=== PATIENT | female | born 1965 | race Caucasian/White ===

== ENCOUNTER 2017-08-14 15:08 | Observation (INO) | payer MEDICAID ==
[~2017-08-14] VITALS: Ht 170.2 cm; Wt 58.9 kg
[~2017-08-14 15:08] MED LIST: AMLO10 PO; ASPI81 PO; BUPR1SUB6 SL; CLON-352 PO; ISOS60TA PO; KLON2TAB PO; LISI20 PO; LOSA100T PO; METO50TA PO; PLAV75TA29 PO; PRAV80TA PO; ROSU20 PO; SIMV40; TOPR50TA PO; TRAZ50TA78 PO; VALI5TAB OR
[2017-08-14 18:15] VITALS: BP 145/83; PULSE 74; RESP 16; TEMP 98.1; O2SAT 93
[2017-08-14] MEDS ORDERED: NALOXONE HCL 0.4 MG/ML AMP IV PUSH PRN (18:30)
[2017-08-14] MEDS ORDERED: TEMAZEPAM 15 MG CAP PO PRN (18:30)
[2017-08-14] MEDS ORDERED: LACTULOSE SYRUP 20 GM/30 ML CUP PO PRN (18:30)
[2017-08-14 20:00] VITALS: BP 114/66; PULSE 74; RESP 17; TEMP 99.1; O2SAT 98
[2017-08-14] MEDS ORDERED: POTASSIUM CHLORIDE 20 MEQ CONTROLLED RELEASE TAB PO ONE (20:45)
[2017-08-14] MEDS: MORPHINE SULFATE 4 MG/ML INJ IV PUSH PRN (21:52)
[2017-08-14] MEDS: SODIUM CHLORIDE 0.9% FLUSH 10 ML FLUSH IV FLUSH SCH (21:53)
[2017-08-14] MEDS: SODIUM CHLORIDE 0.9% FLUSH 10 ML FLUSH IV FLUSH PRN (23:10)
[2017-08-14] MEDS: ONDANSETRON HCL 4 MG/2 ML VIAL IVP PRN (23:10)
[2017-08-15] VITALS: BP 118/71; PULSE 77; RESP 18; TEMP 98.5; O2SAT 97
[2017-08-15] MEDS: SODIUM CHLORIDE 0.9% FLUSH 10 ML FLUSH IV FLUSH PRN (03:33)
[2017-08-15] MEDS: MORPHINE SULFATE 4 MG/ML INJ IV PUSH PRN ×3 (03:33→12:53)
[2017-08-15 08:00] VITALS: BP 151/93; PULSE 80; RESP 16; TEMP 99.3; O2SAT 92
[2017-08-15] MEDS: SODIUM CHLORIDE 0.9% FLUSH 10 ML FLUSH IV FLUSH SCH (08:00)
[2017-08-15 09:29] LABS: AUTOMATED NEUTROPHIL # 3.6 TH/MM3 (1.8-7.7); BASOPHIL % 0.4 % (0.0-2.0); EOSINOPHIL % 0.6 % (0.0-4.0); HEMATOCRIT 43.1 % (35.0-46.0); HEMO FLAGS DIFF FINAL; LYMPH % 20.5 % (9.0-44.0); MEAN CELL VOLUME 88.3 FL (80.0-100.0); MEAN CORPUSCULAR HEMOGLOBIN 29.4 PG (27.0-34.0); MEAN CORPUSCULAR HGB CONC 33.2 % (32.0-36.0); MONO % 10.6 % (0.0-8.0); NEUT % 67.9 % (16.0-70.0); PLATELET COUNT 149 TH/MM3 (150-450); RED BLOOD COUNT 4.88 MIL/MM3 (4.00-5.30); RED CELL DISTRIBUTION WIDTH 13.3 % (11.6-17.2); WHITE BLOOD COUNT 5.1 TH/MM3 (4.0-11.0)
[2017-08-15 09:54] LABS: BICARBONATE 26.7 MEQ/L (21.0-32.0)
[2017-08-15 09:55] LABS: POTASSIUM 3.3 MEQ/L (3.5-5.1)
[2017-08-15] MEDS ORDERED: PNEUMOCOCCAL POLYVALENT INJ 25 MCG/0.5 ML SYR IM ONE (10:00)
[2017-08-15] MEDS ORDERED: INFLUENZA VIRUS VACCINE (QUADRIVALENT) 0.5 ML SYR IM ONE (10:00)
[2017-08-15] MEDS: ONDANSETRON HCL 4 MG/2 ML VIAL IVP PRN (10:12)
--- NOTE | 2017-08-15 10:42 | HHI.DCPOC ---
Discharge Care Plan Diagnosis: (1) Abdominal pain Goals to Promote Your Health * To prevent worsening of your condition and complications * To maintain your health at the optimal level Directions to Meet Your Goals Take your medications as prescribed Follow your dietary instruction Follow activity as directed Keep your appointments as scheduled Take your immunizations and boosters as scheduled If your symptoms worsen call your PCP, if no PCP go to Urgent Care Center or Emergency Room Smoking is Dangerous to Your Health. Avoid second hand smoke Call the 24-hour hour crisis hotline for domestic abuse at Colette Newberry MD Aug 15, 2017 10:42
[2017-08-15 12:00] VITALS: BP 143/89; PULSE 75; RESP 18; TEMP 98.9; O2SAT 93
[2017-08-15] MEDS ORDERED: CYCLOBENZAPRINE HCL 10 MG TAB PO ONE (12:15)
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
[2017-08-15 16:00] VITALS: BP 130/85; PULSE 85; RESP 16; TEMP 98.5; O2SAT 96
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
[2017-08-15] MEDS ORDERED: CYCL10TA PO (16:26)
[2017-08-19] MEDS ORDERED: NAPR500 PO (13:26)
[2017-08-19] MEDS ORDERED: MACR100C2 PO (13:26)
== END 2017-08-15 16:51 | disposition home or self-care (01) ==
LOC: PHEDDLT 15:08 → PH3A 17:46
PROVIDERS: ADMIT Hospitalist; ATTEND Hospitalist
DX: R10.32 Left lower quadrant pain (principal); I25.10 Atherosclerotic heart disease of native coronary artery without angina pectoris; I73.9 Peripheral vascular disease, unspecified; I25.2 Old myocardial infarction; F17.200 Nicotine dependence, unspecified, uncomplicated; Z95.820 Peripheral vascular angioplasty status with implants and grafts; Z95.1 Presence of aortocoronary bypass graft
CPT/HCPCS: 70450; 72125; 74176; 80048; 80053; 81001; 85007; 85025; 85027; 85610; 85730; 96374; 96375; 96376; 99285; G0378; J2270; J2405